=== PATIENT | male | born 1950 | race Caucasian/White ===

== ENCOUNTER 2017-05-28 23:17 | Emergency (ER) | payer BC, OTHER ==
[~2017-05-28] VITALS: Ht 172.7 cm; Wt 97.5 kg
[~2017-05-28 23:17] MED LIST: ASP81 PO; CYC10 PO; ERG400 PO; LEVO500T PO; LOR5 PO; MAX75 PO; METO-231 PO; OMEP-218 PO; OSE75 PO; OXYC-865 PO; PRO25 PO; PROM5SYR PO; RABE20TA33 PO; VARD10TA PO; VITA1CAP46 PO
--- NOTE | 2017-05-28 23:20 | ER Report ---
History and Physical Time Seen By MD: 23:19 HPI/ROS CHIEF COMPLAINT: Left upper quadrant pain HISTORY OF PRESENT ILLNESS: 66-year-old male presents ambulatory to the ER complaining of left upper quadrant pain radiating to his left upper shoulder with tingling in his left arm, sudden onset, which woke him from his sleep approximately 1 hour prior to arrival to the ER. Nausea, diaphoresis or shortness of breath. He has no previous history of cardiac disease. He does have a history of GERD for which he takes omeprazole. Patient took 4 baby aspirin at home prior to coming in. He now complains of a headache. He also notes a painful sensation to the left side of his face and head. He notes no photophobia or scotoma. Patient notes no exacerbating or alleviating factors. He notes no change in the chest discomfort with respiration. He notes he's had a previous history of kidney stones. Patient states he is due for his annual checkup on [facility] at the [facility] On further questioning, the patient reports the pain in the ceiling earlier today.. REVIEW OF SYSTEMS: Respiratory: No cough, no dyspnea. Cardiovascular: As above Gastrointestinal: As above Musculoskeletal: As above Allergies: Coded Allergies: No Known Drug Allergies (Verified , 05/28/17) Uncoded Allergies: BEE STINGS (Allergy, Mild, 10/16/10) Home Meds Active Scripts Oxycodone Hcl/Acetaminophen (PERCOCET 5-325 MG TABLET) 1 Each Tablet, 1 EACH PO Q4-6H Y for PAIN, #12 Prov:BRIDGET BEATTY DO 05/29/17 Methocarbamol (ROBAXIN-750) 750 Mg Tablet, 1 TAB PO TID Y for muscle spasm relief, #20 Prov:BRIDGET BEATTY DO 05/29/17 Reported Medications Sildenafil Citrate (VIAGRA) 100 Mg Tablet, 100 MG PO QDAY 05/28/17 Promethazine Hcl (PROMETHAZINE HCL) 25 Mg Tablet, 25 MG PO Q8H Y for NAUSEA, TAB 05/28/17 Vitamin B Complex (VITAMIN B COMPLEX) 1 Each Capsule, 1 EACH PO QDAY, CAPSULE 05/28/17 Cholecalciferol (Vitamin D3) (VITAMIN D3) 1,000 Unit Tablet, 1000 UNIT PO QDAY, TAB 05/28/17 [place]-3 Fatty Acids/Fish Oil (OMEGA 3 1,000 MG SOFTGEL) 1 Each Capsule, 1 EACH PO QDAY, CAPSULE 05/28/17 Levothyroxine Sodium (SYNTHROID) 88 Mcg Tablet, 2 TAB PO QDAY 05/28/17 Pregabalin (LYRICA) 75 Mg Capsule, 75 MG PO BID, CAPSULE 05/28/17 Omeprazole Magnesium (PRILOSEC OTC) 20 Mg Tablet.dr, 1 TAB PO QDAY, TAB 05/28/17 Meloxicam (MELOXICAM) 15 Mg Tablet, 15 MG PO QDAY 05/28/17 Fexofenadine Hcl (JIM ALLERGY) 60 Mg Tablet, 60 MG PO BID 05/28/17 Triamterene/Hydrochlorothiazid (MAXZIDE 37.5 MG-25 MG TABLET) 1 Each Tablet, 1 EACH PO QDAY 05/28/17 Metoprolol Succinate (METOPROLOL SUCCINATE) 25 Mg Tab.er.24h, 1 TAB PO QDAY, TAB 05/28/17 Aspirin (Childrens Chewable Aspirin) 81 Mg Chew, 81 MG PO QDAY, 0 Refills 10/16/10 Discontinued Reported Medications Metoprolol Succinate (Metoprolol Succinate) 100 Mg Tab.sr.24h, 1 TAB PO BID 01/03/12 Vitamin D (Vitamin D) 400 Intlu Tab, 400 INTLU PO BID, 0 Refills 10/16/10 Vitamin B Complex (Vitamin B Complex) 1 Cap Capsule, 1 CAP PO DAILY, 0 Refills 10/16/10 Omeprazole Magnesium (Prilosec Otc) 20 Mg Tablet.dr, 20 MG PO QDAY, 0 Refills 10/16/10 Triamterene/Hctz (Maxzide 50-75 Mg) 1 Ea Tab, 1 TAB PO QDAY, 0 Refills 1 TABLET PER DAY 10/16/10 Discontinued Scripts Oseltamivir Phosphate (TAMIFLU) 75 Mg Cap, 75 MG PO BID, #9 CAP Prov:YESSENIA CHERY [facility] 04/29/17 Promethazine HCl/Codeine (Prometh-Codein 6.25-10 mg/5 ml) 5 Ml Syrup, 1 TSP PO QHS Y for COUGH, #120 ML Prov:YESSENIA CHERY [facility] 04/29/17 Past Medical/Surgical History Patient has a past medical history of murmur, hypertension, asthma, reflux, alcohol use, kidney stone, patient's followed at the [facility] in [place]. Patient has a surgical history of cholecystectomy. Reviewed Nurses Notes: Yes Old Medical Records Reviewed: Yes Hx Smoking: Yes Hx Alcohol Use: Yes (OCC) Constitutional Vital Sign - Last 24 Hours 05/28/17 05/28/17 05/28/17 05/28/17 23:22 23:30 23:32 23:47 Temp 98.2 Pulse 74 73 68 Resp 24 28 9 B/P (MAP) 161/101 154/86 (108) Pulse Ox 93 92 92 05/29/17 05/29/17 05/29/17 05/29/17 00:00 00:02 00:17 00:30 Pulse 72 72 Resp 26 15 B/P (MAP) 144/80 (101) 152/83 (106) Pulse Ox 91 93 05/29/17 00:32 Pulse 82 Resp 26 Pulse Ox 92 Physical Exam General Appearance: The patient is alert, has no immediate need for airway protection and no current signs of toxicity. Vital signs stable, afebrile, pulse ox normal HEENT: Pupils equal and round no injection. TMs normal, oropharynx without redness or exudate Respiratory: Chest is non tender, lungs are clear to auscultation. Cardiac: regular rate and rhythm Gastrointestinal: Abdomen is soft and non tender, no masses, bowel sounds normal. Musculoskeletal: Neck: Neck is supple and non tender., Muscular tenderness in the Ol[place] minus musculature and left trapezius Extremities have full range of motion and are non tender. Skin: No rashes or lesions. DIFFERENTIAL DIAGNOSIS: After history and physical exam differential diagnosis was considered for chest pain including but not limited to myocardial ischemia, pericarditis pulmonary embolus, chest wall pain, pleural inflammation and pulmonary infectious causes. Additionally,back pain including but not limited to muscular pain, herniated disc, spine fracture, intra-abdominal causes and urinary tract infection. Medical Decision Making Data Points Result Diagram: 05/28/17232505/28/172325 Laboratory Hematology Test 05/28/17 23:26 Red Blood Count 5.75 M/uL (4.00-5.60) Mean Corpuscular Volume 85.6 fL (80.0-96.0) Mean Corpuscular Hemoglobin 30.1 pg (26.0-33.0) Mean Corpuscular Hemoglobin Concent 35.1 g/dL (32.0-36.0) Red Cell Distribution Width 13.8 % (11.5-14.5) Mean Platelet Volume 9.2 fL (7.2-11.1) Neutrophils (%) (Auto) 70.6 % (39.4-72.5) Lymphocytes (%) (Auto) 13.4 % (17.6-49.6) Monocytes (%) (Auto) 12.4 % (4.1-12.4) Eosinophils (%) (Auto) 2.6 % (0.4-6.7) Basophils (%) (Auto) 1.0 % (0.3-1.4) Nucleated RBC Relative Count (auto) 0.3 /100WBC Neutrophils # (Auto) 7.3 K/uL (2.0-7.4) Lymphocytes # (Auto) 1.4 K/uL (1.3-3.6) Monocytes # (Auto) 1.3 K/uL (0.3-1.0) Eosinophils # (Auto) 0.3 K/uL (0.0-0.5) Basophils # (Auto) 0.1 K/uL (0.0-0.1) Nucleated RBC Absolute Count (auto) 0.04 K/uL Urine Color Straw Urine Clarity Clear Urine pH 7.0 pH (4.8-9.5) Urine Specific [place] 1.015 Urine Protein Negative mg/dL (NEGATIVE) Urine Glucose (UA) Negative mg/dL (NEGATIVE) Urine Ketones Negative mg/dL (NEGATIVE) Urine Blood Negative (NEGATIVE) Urine Nitrite Negative (NEGATIVE) Urine Bilirubin Negative (NEGATIVE) Urine Urobilinogen 2.0 mg/dL (0.2-1.9) Urine Leukocyte Esterase Negative (NEGATIVE) Urine RBC None /HPF (0-2/HPF) Urine WBC <1 /HPF (0-5/HPF) Urine Squamous Epithelial Cells None /LPF (</=FEW) Urine Bacteria Negative /HPF (NONE-FEW) Urine Mucus None /HPF (NONE-FEW) Sodium Level 138 mmol/L (137-145) Potassium Level 3.6 mmol/L (3.5-5.0) Chloride Level 103 mmol/L (98-107) Carbon Dioxide Level 24 mmol/L (22-30) Blood Urea Nitrogen 26 mg/dl (9-21) Creatinine 1.10 mg/dl (0.66-1.25) Glomerular Filtration Rate Calc > 60.0 Random Glucose 104 mg/dl (75-110) Calcium Level 9.2 mg/dl (8.4-10.2) Total Bilirubin 0.6 mg/dl (0.2-1.3) Aspartate Amino Transf (AST/SGOT) 61 U/L (0-35) Alanine Aminotransferase (ALT/SGPT) 105 U/L (0-56) Alkaline Phosphatase 78 U/L (0-126) Troponin I < 0.012 ng/ml Total Protein 7.3 gm/dl (6.3-8.2) Albumin 4.3 g/dl (3.5-5.0) Amylase Level 36 U/L (0-110) Lipase 138 U/L (23-300) Chemistry Test 05/28/17 23:26 White Blood Count 10.3 k/uL (4.5-11.0) Red Blood Count 5.75 M/uL (4.00-5.60) Hemoglobin 17.3 g/dL (14.0-18.0) Hematocrit 49.2 % (42.0-52.0) Mean Corpuscular Volume 85.6 fL (80.0-96.0) Mean Corpuscular Hemoglobin 30.1 pg (26.0-33.0) Mean Corpuscular Hemoglobin Concent 35.1 g/dL (32.0-36.0) Red Cell Distribution Width 13.8 % (11.5-14.5) Platelet Count 190 K/uL (150-450) Mean Platelet Volume 9.2 fL (7.2-11.1) Neutrophils (%) (Auto) 70.6 % (39.4-72.5) Lymphocytes (%) (Auto) 13.4 % (17.6-49.6) Monocytes (%) (Auto) 12.4 % (4.1-12.4) Eosinophils (%) (Auto) 2.6 % (0.4-6.7) Basophils (%) (Auto) 1.0 % (0.3-1.4) Nucleated RBC Relative Count (auto) 0.3 /100WBC Neutrophils # (Auto) 7.3 K/uL (2.0-7.4) Lymphocytes # (Auto) 1.4 K/uL (1.3-3.6) Monocytes # (Auto) 1.3 K/uL (0.3-1.0) Eosinophils # (Auto) 0.3 K/uL (0.0-0.5) Basophils # (Auto) 0.1 K/uL (0.0-0.1) Nucleated RBC Absolute Count (auto) 0.04 K/uL Urine Color Straw Urine Clarity Clear Urine pH 7.0 pH (4.8-9.5) Urine Specific [place] 1.015 Urine Protein Negative mg/dL (NEGATIVE) Urine Glucose (UA) Negative mg/dL (NEGATIVE) Urine Ketones Negative mg/dL (NEGATIVE) Urine Blood Negative (NEGATIVE) Urine Nitrite Negative (NEGATIVE) Urine Bilirubin Negative (NEGATIVE) Urine Urobilinogen 2.0 mg/dL (0.2-1.9) Urine Leukocyte Esterase Negative (NEGATIVE) Urine RBC None /HPF (0-2/HPF) Urine WBC <1 /HPF (0-5/HPF) Urine Squamous Epithelial Cells None /LPF (</=FEW) Urine Bacteria Negative /HPF (NONE-FEW) Urine Mucus None /HPF (NONE-FEW) Glomerular Filtration Rate Calc > 60.0 Calcium Level 9.2 mg/dl (8.4-10.2) Total Bilirubin 0.6 mg/dl (0.2-1.3) Aspartate Amino Transf (AST/SGOT) 61 U/L (0-35) Alanine Aminotransferase (ALT/SGPT) 105 U/L (0-56) Alkaline Phosphatase 78 U/L (0-126) Troponin I < 0.012 ng/ml Total Protein 7.3 gm/dl (6.3-8.2) Albumin 4.3 g/dl (3.5-5.0) Amylase Level 36 U/L (0-110) Lipase 138 U/L (23-300) Urinalysis Test 05/28/17 23:26 Urine Color Straw Urine Clarity Clear Urine pH 7.0 pH (4.8-9.5) Urine Specific [place] 1.015 Urine Protein Negative mg/dL (NEGATIVE) Urine Glucose (UA) Negative mg/dL (NEGATIVE) Urine Ketones Negative mg/dL (NEGATIVE) Urine Blood Negative (NEGATIVE) Urine Nitrite Negative (NEGATIVE) Urine Bilirubin Negative (NEGATIVE) Urine Urobilinogen 2.0 mg/dL (0.2-1.9) Urine Leukocyte Esterase Negative (NEGATIVE) Urine RBC None /HPF (0-2/HPF) Urine WBC <1 /HPF (0-5/HPF) Urine Squamous Epithelial Cells None /LPF (</=FEW) Urine Bacteria Negative /HPF (NONE-FEW) Urine Mucus None /HPF (NONE-FEW) EKG/Imaging EKG Interpretation 12 lead EK Rhythm: normal sinus rhythm [place]: normal QRS: normal ST segments: normal, no evidence of ischemia or dysrhythmia Imaging X-ray: Single view portable chest x-ray was obtained. I viewed the images myself on the PACS system. My interpretation of the images is: No infiltrate no effusion, normal mediastinum., Comparison to previous chest x-ray 04/29/70, no significant change. The radiologist interpretation had no clinically significant variation from this interpretation. ED Course/Re-evaluation Clinical Indication for ER IV: IV Access ED Course Patient was admitted to an examination room. H&P was done. The differential diagnoses was considered. On clinical examination. Patient has left upper quadrant and left rib pain, without associated cardiac symptoms. Patient has no previous cardiac history. His pulmonary EKG is unremarkable for evidence of ischemia. Further diagnostic testing is unremarkable. Patient notes pain radiating up the entire left side of his spine. 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 I suspect that his symptoms are musculoskeletal in nature. Patient was given Toradol 30 mg IV and discharged home on Percocet and Robaxin. He is advised to follow-up with his primary care as planned in 2 days. Decision to Disposition Date: May 28, 2017 Decision to Disposition Time: 23:56 Depart Departure Latest Vital Signs Vital Signs Date Time Temp Pulse Resp B/P (MAP) Pulse Ox O2 Delivery O2 Flow Rate FiO2 05/29/17 00:32 82 26 92 05/29/17 00:30 152/83 (106) 05/28/17 23:22 98.2 Impression: Primary Impression: Neck pain Additional Impression: Strain of thoracic region Condition: Improved Disposition: HOME OR SELF-CARE Referrals: KODI HARRISON DO (PCP) New Scripts Oxycodone Hcl/Acetaminophen (PERCOCET 5-325 MG TABLET) 1 Each Tablet 1 EACH PO Q4-6H Y for PAIN, #12 Prov: BRIDGET BEATTY DO 05/29/17 Methocarbamol (ROBAXIN-750) 750 Mg Tablet 1 TAB PO TID Y for muscle spasm relief, #20 Prov: BRIDGET BEATTY DO 05/29/17 Patient Instructions: Acute Neck Pain (ED), Thoracic Back Strain (ED) Additional Instructions: Take ibuprofen 200 mg 2 tablets 3 times a day with food Apply a heating pad to your upper back and neck [facility] days as planned Problem Qualifiers Additional Impression: Strain of thoracic region Encounter type: initial encounter Qualified Codes: S29.019A - Strain of muscle and tendon of unspecified wall of thorax, initial encounter BRIDGET BEATTY DO May 28, 2017 23:20
[2017-05-28] MEDS ORDERED: NS(*) 0.9% 1000 ML BAG 1,000 ML IV ONE (23:31)
[2017-05-28] MEDS ORDERED: LEVO88TA43 PO (23:37)
[2017-05-28] MEDS ORDERED: OMEP-218 PO (23:37)
[2017-05-28] MEDS ORDERED: METO25TA23 PO (23:37)
[2017-05-28] MEDS ORDERED: PREG75CA60 PO (23:37)
[2017-05-28] MEDS ORDERED: MELO-207 PO (23:37)
[2017-05-28] MEDS ORDERED: FEXO-72 PO (23:37)
[2017-05-28] MEDS ORDERED: TRIA-19 PO (23:37)
--- NOTE | 2017-05-28 23:39 | EKG ---
FACILITY: [facility] PATIENT NAME: REED COWAN : [id number] MR: [id number] V: [id number] EXAM DATE: ORDERING PHYSICIAN: BRIDGET BEATTY TECHNOLOGIST: Teofilo Quach Reason : Blood Pressure : / mmHG Vent. Rate : 072 BPM Atrial Rate : 072 BPM P-R Int : 162 ms QRS Dur : 096 ms QT Int : 402 ms P-R-T Axes : 029 019 046 degrees QTc Int : 440 ms Normal sinus rhythm Normal ECG No previous ECGs available Confirmed by NADJA GRANADOS ([id number]) on 05/29/2017 5:37:26 AM Referred By: Confirmed By:NADJA GRANADOS
[2017-05-28] MEDS ORDERED: CHOL10005 PO (23:41)
[2017-05-28] MEDS ORDERED: OMEG-96 PO (23:41)
[2017-05-28] MEDS ORDERED: PROM-110 PO (23:41)
[2017-05-28] MEDS ORDERED: VITA1CAP46 PO (23:41)
[2017-05-28] MEDS ORDERED: SILD100T59 PO (23:41)
[2017-05-28 23:50] LABS: PLATELET COUNT, AUTOMATED 190 K/uL (150-450)
--- NOTE | 2017-05-29 00:02 | RADIOLOGY IMAGING REPORT ---
FACILITY: [facility] PATIENT NAME: Narayan Brooks : 1950 MR: [id number] V: [id number] EXAM DATE: ORDERING PHYSICIAN: BRIDGET BEATTY TECHNOLOGIST: Location: [facility] - [place] Patient: Narayan Brooks : 1950 Visit/Account:[id number] Date of Sevice: 05/28/2017 SINGLE AP RADIOGRAPH OF THE CHEST 05/28/2017 11:31 PM. INDICATION: Left-sided chest pain. COMPARISON: 04/29/2017. FINDINGS: Lungs are overall well-expanded. There is no consolidation. No pleural effusion or pneumothorax. Hear t size is normal. IMPRESSION: No acute abnormality. Report Dictated By: Liam Lares MD at 05/28/2017 11:57 PM Report E-Signed By: Liam Lares MD at 05/28/2017 11:59 PM WSN:[id number]
[2017-05-29] MEDS ORDERED: KETOROLAC 30 MG/ML VIAL IVP ONE (00:25)
[2017-05-29] MEDS ORDERED: oxyCODONE/ACETAMIN 5/325MG TH 2 TAB/BOTTLE PO ONE (00:25)
[2017-05-29] MEDS ORDERED: METHOCARBAMOL 500 MG TAB PO ONE (00:25)
[2017-05-29] MEDS ORDERED: OXYC-865 PO (00:29)
[2017-05-29] MEDS ORDERED: METH-543 PO (00:29)
[2017-05-29 00:30] VITALS: BP 152/83
== END 2017-05-29 01:09 | disposition home or self-care (01) ==
LOC: ER 23:45
DX: S29.019A Strain of muscle and tendon of unspecified wall of thorax, initial encounter (principal); M54.2 Cervicalgia
CPT/HCPCS: 71045; 81001; 82150; 83690; 84484; 85025; 93005; 96361; 96374; 99284; J1885; J7030; 82040; 82247; 82310; 82374; 82435; 82565; 82947; 84075; 84132; 84155; 84295; 84450; 84460; 84520

== ENCOUNTER 2017-08-13 16:52 | Emergency (ER) | payer OTHER, BC ==
[~2017-08-13 16:52] MED LIST changes: +CHOL10005 PO; +FEXO-72 PO; +LEVO88TA43 PO; +MELO-207 PO; +METH-543 PO; +METO25TA23 PO; +OMEG-96 PO; +PREG75CA60 PO; +PROM-110 PO; +SILD100T59 PO; +TRIA-19 PO
[2017-08-13] MEDS ORDERED: DIPHTH/TETANUS/ACEL. PERTUSSIS IM ONLY ONE (17:00)
--- NOTE | 2017-08-13 17:16 | ER Report ---
History and Physical Time Seen By MD: 17:00 Hx. of Stated Complaint: PT USED AIR NAILER AND PUT A NAIL THRU L MIDDLE FINGER NAIL. HE DID PULL IT OUT HPI/ROS CHIEF COMPLAINT: Nail trauma HISTORY OF PRESENT ILLNESS: Otherwise healthy 66-year-old male comes emergency Department today with a complaint of pain. Pain to the middle finger of the nondominant left hand very small gauge nail through a nail gun completely through the nail bed and out the tuft of the finger patient has full range of motion is no additional complaints tenderness will be updated REVIEW OF SYSTEMS: Respiratory: No cough, no dyspnea. Cardiovascular: No chest pain, no palpitations. Gastrointestinal: No vomiting, no abdominal pain. Musculoskeletal: No back pain. Remainder of the 14 system rev: Yes Allergies: Coded Allergies: No Known Drug Allergies (Verified , 08/13/17) Uncoded Allergies: BEE STINGS (Allergy, Mild, 10/16/10) Home Meds Active Scripts Methocarbamol (ROBAXIN-750) 750 Mg Tablet, 1 TAB PO TID Y for muscle spasm relief, #20 Prov:BRIDGET BEATTY DO 05/29/17 Reported Medications Vitamin B Complex (VITAMIN B COMPLEX) 1 Each Capsule, 1 EACH PO QDAY, CAPSULE 05/28/17 Cholecalciferol (Vitamin D3) (VITAMIN D3) 1,000 Unit Tablet, 1000 UNIT PO QDAY, TAB 05/28/17 [place]-3 Fatty Acids/Fish Oil (OMEGA 3 1,000 MG SOFTGEL) 1 Each Capsule, 1 EACH PO QDAY, CAPSULE 05/28/17 Levothyroxine Sodium (SYNTHROID) 88 Mcg Tablet, 2 TAB PO QDAY 05/28/17 Omeprazole Magnesium (PRILOSEC OTC) 20 Mg Tablet.dr, 1 TAB PO QDAY, TAB 05/28/17 Meloxicam (MELOXICAM) 15 Mg Tablet, 15 MG PO QDAY 05/28/17 Fexofenadine Hcl (JIM ALLERGY) 60 Mg Tablet, 60 MG PO BID 05/28/17 Triamterene/Hydrochlorothiazid (MAXZIDE 37.5 MG-25 MG TABLET) 1 Each Tablet, 1 EACH PO QDAY 05/28/17 Metoprolol Succinate (METOPROLOL SUCCINATE) 25 Mg Tab.er.24h, 1 TAB PO QDAY, TAB 05/28/17 Aspirin (Childrens Chewable Aspirin) 81 Mg Chew, 81 MG PO QDAY, 0 Refills 10/16/10 Discontinued Reported Medications Sildenafil Citrate (VIAGRA) 100 Mg Tablet, 100 MG PO QDAY 05/28/17 Promethazine Hcl (PROMETHAZINE HCL) 25 Mg Tablet, 25 MG PO Q8H Y for NAUSEA, TAB 05/28/17 Pregabalin (LYRICA) 75 Mg Capsule, 75 MG PO BID, CAPSULE 05/28/17 Discontinued Scripts Oxycodone Hcl/Acetaminophen (PERCOCET 5-325 MG TABLET) 1 Each Tablet, 1 EACH PO Q4-6H Y for PAIN, #12 Prov:BRIDGET BEATTY DO 05/29/17 Reviewed Nurses Notes: Yes Old Medical Records Reviewed: Yes Hx Smoking: Yes Hx Substance Use Disorder: No Hx Alcohol Use: Yes (OCC) Constitutional Vital Sign - Last 24 Hours 08/13/17 16:56 Temp 98.2 Pulse 71 Resp 20 B/P (MAP) 156/90 Pulse Ox 91 O2 Delivery Room Air Physical Exam General appearance: Alert no distress. Respiratory: Chest is non tender, lungs are clear to auscultation. Cardiac: Regular rate and rhythm [ ] Left hand examination examination of the nail of the finger left nondominant hand shows a small exit and entrance wound with a very small gauge nail had passed through full range of motion and neurovascularly intact no additional findings noted DIFFERENTIAL DIAGNOSIS: After history and physical exam differential diagnosis was considered for nail trauma Medical Decision Making ED Course/Re-evaluation ED Course ED clinical course 64 mL nail gun through the nailbed looks like he had involved distal tuft but no obvious significant fracture went simply threw the bat of the bone marrow [place] started on antibiotics preventing osteomyelitis concern tetanus was updated wound is clinical to see irrigated orthopedic follow-up Decision to Disposition Date: Aug 13, 2017 Decision to Disposition Time: 17:21 Depart Departure Latest Vital Signs Vital Signs Date Time Temp Pulse Resp B/P (MAP) Pulse Ox O2 Delivery O2 Flow Rate FiO2 08/13/17 16:56 98.2 71 20 156/90 91 Room Air Impression: Primary Impression: Open fracture of distal phalangeal tuft Condition: Improved Disposition: HOME OR SELF-CARE Referrals: KODI HARRISON DO (PCP) DANAE HOLMAN MD 5 Days New Scripts Cephalexin (KEFLEX) 500 Mg Capsule 500 MG PO Q6H, #20 CAP 0 Refills TAKE ONE CAPSULE BY MOUTH EVERY SIX HOURS Prov: NIRALI FAM MD 08/13/17 Patient Instructions: Finger Fracture (DC) NIRALI FAM MD Aug 13, 2017 17:16
[2017-08-13] MEDS ORDERED: CEPH-13 PO (17:23)
[2017-08-13 17:30] VITALS: BP 152/90
--- NOTE | 2017-08-13 17:32 | RADIOLOGY IMAGING REPORT ---
FACILITY: [facility] PATIENT NAME: Narayan Brooks : 1950 MR: [id number] V: [id number] EXAM DATE: ORDERING PHYSICIAN: NIRALI FAM TECHNOLOGIST: Location: [facility] - [place] Patient: Narayan Brooks : 1950 Visit/Account:[id number] Date of Sevice: 08/13/2017 Exam type: HAND COMPLETE LEFT History: Nail shot through nail bed of third digit Comparison: None. Findings: There is a lucency traversing the base of the tuft of the distal phalanx of the left third finger. T here is adjacent cortical irregularity. This could represent a small fracture given the clinical his tory. There are mild degenerative changes also noted involving the DIP joint of the left third finge r. There is a bony density projecting along the dorsal aspect of the distal left finger just proxima l to the DIP joint. The margins appear relatively smooth suggesting this is a chronic finding. No r adiopaque metallic foreign bodies are identified in the left hand IMPRESSION: 1. There is a lucency traversing the base of the tuft of the distal phalanx left third finger with a djacent cortical irregularity. This could represent a small fracture given the clinical history. Ad ditional chronic findings as described Report Dictated By: Yvonne Leos MD at 08/13/2017 5:25 PM Report E-Signed By: Yvonne Leos MD at 08/13/2017 5:28 PM WSN:[id number]
== END 2017-08-13 17:30 | disposition home or self-care (01) ==
LOC: ER 17:04
DX: S62.633B Displaced fracture of distal phalanx of left middle finger, initial encounter for open fracture (principal); W45.0XXA Nail entering through skin, initial encounter
CPT/HCPCS: 90471; 90715; 99283

== ENCOUNTER 2018-09-16 11:50 | Inpatient (IN) | payer MEDICARE, OTHER ==
[~2018-09-16 11:50] MED LIST changes: +CEPH-13 PO
--- NOTE | 2018-09-16 12:05 | ER Report ---
History and Physical Time Seen By MD: 12:05 HPI/ROS CHIEF COMPLAINT: Fevers and chills HISTORY OF PRESENT ILLNESS: This is a 67-year-old male who presents to the emergency department for not feeling well, fevers and chills. Patient states that yesterday he began to the have aches and chills, systemic achiness in his joints. Intermittent nausea no vomiting. No diarrhea. Minimal urinary output. Denies chest pain or shortness of breath. He does have a wound and a cellulitic right lower extremity. This is new from 2 days ago, he states he may have hit his limon on a trailer hitch. REVIEW OF SYSTEMS: Constitutional: As above. Eyes: No discharge. ENT: No sore throat. Cardiovascular: No chest pain, no palpitations. Respiratory: No cough, no shortness of breath. Gastrointestinal: As above. Genitourinary: As above. Musculoskeletal: No back pain. Skin: As above. Neurological: No headache. Allergies: Coded Allergies: No Known Drug Allergies (Verified , 08/13/17) Uncoded Allergies: BEE STINGS (Allergy, Mild, 10/16/10) Home Meds Reported Medications Meloxicam (MOBIC) 15 Mg Tablet, 15 MG PO QDAY 09/16/18 Levothyroxine Sodium (SYNTHROID) 200 Mcg Tablet, 200 MCG PO QDAY 09/16/18 Vitamin B Complex (VITAMIN B COMPLEX) 1 Each Capsule, 1 EACH PO QDAY, CAPSULE 05/28/17 Cholecalciferol (Vitamin D3) (VITAMIN D3) 1,000 Unit Tablet, 1000 UNIT PO QDAY, TAB 05/28/17 [place]-3 Fatty Acids/Fish Oil (OMEGA 3 1,000 MG SOFTGEL) 1 Each Capsule, 1 EACH PO QDAY, CAPSULE 05/28/17 Omeprazole Magnesium (PRILOSEC OTC) 20 Mg Tablet.dr, 1 TAB PO QDAY, TAB 05/28/17 Triamterene/Hydrochlorothiazid (MAXZIDE 37.5 MG-25 MG TABLET) 1 Each Tablet, 1 EACH PO QDAY 05/28/17 Metoprolol Succinate (METOPROLOL SUCCINATE) 25 Mg Tab.er.24h, 1 TAB PO QDAY, TAB 05/28/17 Aspirin (Childrens Chewable Aspirin) 81 Mg Chew, 81 MG PO QDAY, 0 Refills 10/16/10 Discontinued Reported Medications Levothyroxine Sodium (SYNTHROID) 88 Mcg Tablet, 2 TAB PO QDAY 05/28/17 Meloxicam (MELOXICAM) 15 Mg Tablet, 15 MG PO QDAY 05/28/17 Fexofenadine Hcl (JIM ALLERGY) 60 Mg Tablet, 60 MG PO BID 05/28/17 Discontinued Scripts Cephalexin (KEFLEX) 500 Mg Capsule, 500 MG PO Q6H, #20 CAP 0 Refills TAKE ONE CAPSULE BY MOUTH EVERY SIX HOURS Prov:NIRALI FAM MD 08/13/17 Methocarbamol (ROBAXIN-750) 750 Mg Tablet, 1 TAB PO TID PRN for muscle spasm relief, #20 Prov:BRIDGET BEATTY DO 05/29/17 Past Medical/Surgical History The patient has a past medical and surgical history of a murmur, hypertension, exercise-induced asthma, GERD, gallbladder disease, nasal surgery, cholecystectomy. Reviewed Nurses Notes: Yes Hx Smoking: Yes Hx Substance Use Disorder: No Hx Alcohol Use: Yes (OCC) Constitutional Vital Sign - Last 24 Hours 09/16/18 09/16/18 09/16/18 09/16/18 11:58 12:00 12:02 12:15 Temp 100.1 Pulse 118 122 Resp 20 B/P (MAP) 190/104 190/104 (132) 193/104 (133) 168/108 (128) Pulse Ox 92 91 O2 Delivery Room Air 09/16/18 09/16/18 09/16/18 09/16/18 12:30 13:00 13:15 13:45 Pulse 107 109 Resp 19 B/P (MAP) 182/98 (126) 191/99 (129) 195/99 (131) 192/99 (130) Pulse Ox 88 09/16/18 09/16/18 09/16/18 09/16/18 14:00 14:15 14:18 14:30 Pulse 104 105 Resp 39 56 B/P (MAP) 182/98 (126) 184/94 (124) 186/94 (124) 197/107 (137) Pulse Ox 89 88 09/16/18 09/16/18 14:45 15:00 Pulse 95 Resp 29 B/P (MAP) 169/92 (117) 163/87 (112) Pulse Ox 87 Physical Exam General Appearance: The patient is alert, has no immediate need for airway protection and no signs of toxicity. Eyes: Pupils equal and round no pallor or injection. ENT, Mouth: Mucous membranes are dry. Respiratory: There are no retractions, lungs are clear to auscultation. Cardiovascular: Regular rate and rhythm. Systolic murmur, no clicks or rubs. Gastrointestinal: Abdomen is round, soft and non tender, no masses, bowel sounds normal. Neurological: Alert and oriented 4. Moving all extremities. Following. No focal neurodeficits. Skin: Right lower extremity is hot to touch, cellulitic with surrounding erythema, serous to serosanguineous fluid leaking from the anterior surface of the right lower extremity, there is also a scab to the right lower extremity. Erythema to the right upper medial thigh as well as a few small areas of erythema to the right medial knee. Musculoskeletal: Neck is supple non tender. Extremities are nontender, nonswollen and have full range of motion. DIFFERENTIAL DIAGNOSIS: After history and physical exam differential diagnosis was considered for sepsis, cellulitis, urinary tract infection, pneumonia, bowel obstruction. Medical Decision Making Data Points Result Diagram: 09/16/18 1214 09/16/18 1214 Laboratory Hematology Test 09/16/18 12:14 09/16/18 12:46 Red Blood Count 5.66 M/uL (4.00-5.60) Mean Corpuscular Volume 86.9 fL (80.0-96.0) Mean Corpuscular Hemoglobin 30.4 pg (26.0-33.0) Mean Corpuscular Hemoglobin Concent 35.0 g/dL (32.0-36.0) Red Cell Distribution Width 14.0 % (11.5-14.5) Mean Platelet Volume 8.3 fL (7.2-11.1) Neutrophils (%) (Auto) 85.1 % (39.4-72.5) Lymphocytes (%) (Auto) 5.1 % (17.6-49.6) Monocytes (%) (Auto) 9.1 % (4.1-12.4) Eosinophils (%) (Auto) 0.2 % (0.4-6.7) Basophils (%) (Auto) 0.5 % (0.3-1.4) Nucleated RBC Relative Count (auto) 0.3 /100WBC Neutrophils # (Auto) 9.8 K/uL (2.0-7.4) Lymphocytes # (Auto) 0.6 K/uL (1.3-3.6) Monocytes # (Auto) 1.0 K/uL (0.3-1.0) Eosinophils # (Auto) 0.0 K/uL (0.0-0.5) Basophils # (Auto) 0.1 K/uL (0.0-0.1) Nucleated RBC Absolute Count (auto) 0.03 K/uL Prothrombin Time 14.0 seconds (12.0-14.4) Prothromb Time International Ratio 1.07 Activated Partial Thromboplast Time 28 seconds (23-35) Sodium Level 135 mmol/L (137-145) Potassium Level 3.3 mmol/L (3.5-5.0) Chloride Level 101 mmol/L (98-107) Carbon Dioxide Level 24 mmol/L (22-30) Blood Urea Nitrogen 26 mg/dl (9-21) Creatinine 1.00 mg/dl (0.66-1.25) Glomerular Filtration Rate Calc > 60.0 Random Glucose 134 mg/dl (75-110) Lactate 1.6 mmol/L (0.7-2.1) Calcium Level 9.1 mg/dl (8.4-10.2) Total Bilirubin 1.7 mg/dl (0.2-1.3) Aspartate Amino Transf (AST/SGOT) 50 U/L (0-35) Alanine Aminotransferase (ALT/SGPT) 83 U/L (0-56) Alkaline Phosphatase 74 U/L (0-126) C-Reactive Protein 19.0 mg/dl (<1.0) Total Protein 7.3 g/dl (6.3-8.2) Albumin 4.3 g/dl (3.5-5.0) Urine Color Yellow Urine Clarity Clear Urine pH 6.0 pH (4.8-9.5) Urine Specific [place] 1.024 Urine Protein 100 mg/dL (NEGATIVE) Urine Glucose (UA) Negative mg/dL (NEGATIVE) Urine Ketones Negative mg/dL (NEGATIVE) Urine Blood Negative (NEGATIVE) Urine Nitrite Negative (NEGATIVE) Urine Bilirubin Negative (NEGATIVE) Urine Urobilinogen 4.0 mg/dL (0.2-1.9) Urine Leukocyte Esterase Negative (NEGATIVE) Urine RBC 1 /HPF (0-2/HPF) Urine WBC 4 /HPF (0-5/HPF) Urine Squamous Epithelial Cells None /LPF (</=FEW) Urine Bacteria Negative /HPF (NONE-FEW) Urine Mucus Few /HPF (NONE-FEW) Chemistry Test 09/16/18 12:14 09/16/18 12:46 White Blood Count 11.5 k/uL (4.5-11.0) Red Blood Count 5.66 M/uL (4.00-5.60) Hemoglobin 17.2 g/dL (14.0-18.0) Hematocrit 49.2 % (42.0-52.0) Mean Corpuscular Volume 86.9 fL (80.0-96.0) Mean Corpuscular Hemoglobin 30.4 pg (26.0-33.0) Mean Corpuscular Hemoglobin Concent 35.0 g/dL (32.0-36.0) Red Cell Distribution Width 14.0 % (11.5-14.5) Platelet Count 144 K/uL (150-450) Mean Platelet Volume 8.3 fL (7.2-11.1) Neutrophils (%) (Auto) 85.1 % (39.4-72.5) Lymphocytes (%) (Auto) 5.1 % (17.6-49.6) Monocytes (%) (Auto) 9.1 % (4.1-12.4) Eosinophils (%) (Auto) 0.2 % (0.4-6.7) Basophils (%) (Auto) 0.5 % (0.3-1.4) Nucleated RBC Relative Count (auto) 0.3 /100WBC Neutrophils # (Auto) 9.8 K/uL (2.0-7.4) Lymphocytes # (Auto) 0.6 K/uL (1.3-3.6) Monocytes # (Auto) 1.0 K/uL (0.3-1.0) Eosinophils # (Auto) 0.0 K/uL (0.0-0.5) Basophils # (Auto) 0.1 K/uL (0.0-0.1) Nucleated RBC Absolute Count (auto) 0.03 K/uL Prothrombin Time 14.0 seconds (12.0-14.4) Prothromb Time International Ratio 1.07 Activated Partial Thromboplast Time 28 seconds (23-35) Glomerular Filtration Rate Calc > 60.0 Lactate 1.6 mmol/L (0.7-2.1) Calcium Level 9.1 mg/dl (8.4-10.2) Total Bilirubin 1.7 mg/dl (0.2-1.3) Aspartate Amino Transf (AST/SGOT) 50 U/L (0-35) Alanine Aminotransferase (ALT/SGPT) 83 U/L (0-56) Alkaline Phosphatase 74 U/L (0-126) C-Reactive Protein 19.0 mg/dl (<1.0) Total Protein 7.3 g/dl (6.3-8.2) Albumin 4.3 g/dl (3.5-5.0) Urine Color Yellow Urine Clarity Clear Urine pH 6.0 pH (4.8-9.5) Urine Specific [place] 1.024 Urine Protein 100 mg/dL (NEGATIVE) Urine Glucose (UA) Negative mg/dL (NEGATIVE) Urine Ketones Negative mg/dL (NEGATIVE) Urine Blood Negative (NEGATIVE) Urine Nitrite Negative (NEGATIVE) Urine Bilirubin Negative (NEGATIVE) Urine Urobilinogen 4.0 mg/dL (0.2-1.9) Urine Leukocyte Esterase Negative (NEGATIVE) Urine RBC 1 /HPF (0-2/HPF) Urine WBC 4 /HPF (0-5/HPF) Urine Squamous Epithelial Cells None /LPF (</=FEW) Urine Bacteria Negative /HPF (NONE-FEW) Urine Mucus Few /HPF (NONE-FEW) Coagulation Test 09/16/18 12:14 Prothrombin Time 14.0 seconds Prothromb Time International Ratio 1.07 Activated Partial Thromboplast Time 28 seconds Urinalysis Test 09/16/18 12:46 Urine Color Yellow Urine Clarity Clear Urine pH 6.0 pH (4.8-9.5) Urine Specific [place] 1.024 Urine Protein 100 mg/dL (NEGATIVE) Urine Glucose (UA) Negative mg/dL (NEGATIVE) Urine Ketones Negative mg/dL (NEGATIVE) Urine Blood Negative (NEGATIVE) Urine Nitrite Negative (NEGATIVE) Urine Bilirubin Negative (NEGATIVE) Urine Urobilinogen 4.0 mg/dL (0.2-1.9) Urine Leukocyte Esterase Negative (NEGATIVE) Urine RBC 1 /HPF (0-2/HPF) Urine WBC 4 /HPF (0-5/HPF) Urine Squamous Epithelial Cells None /LPF (</=FEW) Urine Bacteria Negative /HPF (NONE-FEW) Urine Mucus Few /HPF (NONE-FEW) EKG/Imaging Imaging PATIENT NAME: Narayan Brooks : 1950 MR: [id number] V: [id number] EXAM DATE: ORDERING PHYSICIAN: SHILPA FALCON TECHNOLOGIST: Location: [facility] - [place] Patient: Narayan Brooks : 1950 Visit/Account:[id number] Date of Sevice: 09/16/2018 Study: CT scan of the abdomen and pelvis with intravenous contrast Indication: Abdominal pain Comparison study: None Contrast used: 80 mL Isovue-370 Technique: Multiple axial images were obtained through the abdomen and pelvis following intravenous administration of iodinated contrast. Coronal and sagittal two-dimensional reconstructions were made from the original data set. One of the following dose optimization techniques was utilized in the performance of this exam: Automated exposure control; adjustment of the mA and/or kV according to the patient's size; or use of an iterative reconstruction technique. Specific details can be referenced in the facility's radiology CT exam operational policy. Findings: There is an enlarged lymph node and infiltrated fat present within the right inguinal region. Lung bases: Unremarkable Liver: Unremarkable Spleen: Unremarkable Gallbladder: Surgically absent Stomach: Unremarkable Small bowel:The small bowel is unremarkable in appearance. Large bowel: The large bowel is unremarkable in appearance. A normal appendix is visualized Pancreas: Unremarkable Adrenal glands: Unremarkable Kidneys: There are several nonobstructing small stones within the kidney collecting systems bilaterally. There is no evidence of hydronephrosis. There is no evidence of stone within the ureters. Retroperitoneum: Unremarkable Pelvis: Unremarkable Bony structures: Unremarkable IMPRESSION: No acute intra-abdominal or pelvic abnormality identified. There are several nonobstructing small renal stones present bilaterally. A normal appendix is visualized. There is an enlarged lymph node and infiltrated fat present within the right inguinal region. Report Dictated By: Vel Reid at 09/16/2018 1:58 PM Report E-Signed By: Vel Reid at 09/16/2018 2:10 PM WSN:[id number] ED Course/Re-evaluation Clinical Indication for ER IV: Hydration, IV Access ED Course The patient was admitted to room. A history and physical obtained. Differential diagnoses were considered. Sepsis protocol was initiated, IV was started. CBC, CMP, lactate and cultures were obtained. Patient was given a 30 mL/kg IV bolus. Once the cultures were collected, patient was started on 3.375 Zosyn and weight- based per protocol vancomycin.CBC showing white count of 11.5 with a left shift, sodium is 135, potassium 3.3, normal lactate, CRP 19, INR 1.07, urine showing anuria, concentrated with some urine bilirubin. I did talk to the patient's about an admission, I was concerned that he would not be able to go home on oral antibiotics is the extent of the cellulitis is rapidly progressing, patient was agreeable with admission. I did speak with Dr. Madison as noted below, WANDA Tijerina was able to come down and evaluate the patient, prior to admission a CT of the abdomen and pelvis was obtained. Patient was also given 1 g of oral acetaminophen. Patient's tachycardia has improved, current heart rate at 100 bpm. normotensive. 09/16/2018 12:51:22 pm I did speak with Dr. Arsenio Madison, the hospitalist console assembler, he will come down and evaluate the patient for possible admission. 09/16/2018 3:09:04 pm I did speak with Dr. madison Madison, the hospitalist on- call, he's excepted patient noted hospitalist services. Decision to Disposition Date: September 16, 2018 Decision to Disposition Time: 15:09 Depart Departure Latest Vital Signs Vital Signs Date Time Temp Pulse Resp B/P (MAP) Pulse Ox O2 Delivery O2 Flow Rate FiO2 09/16/18 15:00 95 29 163/87 (112) 87 09/16/18 11:58 100.1 Room Air Impression: Primary Impression: Cellulitis of right lower extremity Additional Impression: Sepsis Condition: Improved Disposition: Admitted from ER Referrals: KODI HARRISON DO (PCP) Problem Qualifiers Additional Impression: Sepsis Sepsis type: sepsis due to unspecified organism Qualified Codes: A41.9 - Sepsis, unspecified organism SHILPA FALCONP- September 16, 2018 12:05
[2018-09-16] MEDS ORDERED: NS 0.9% IV ONE (12:15)
[2018-09-16 12:26] LABS: PLATELET COUNT, AUTOMATED 144 K/uL (150-450)
[2018-09-16 12:35] LABS: INR 1.07
[2018-09-16] MEDS ORDERED: VANCOMYCIN(*) 1 GM VIAL 2.5 GM in NS(*) 0.9% 250 ML BAG 250 ML IVPB ONE (12:40)
[2018-09-16] MEDS ORDERED: PIPERACILLIN/TAZO*3.375GM VIAL 3.375 GM in NS(*) 0.9% 100 ML MINI-BAG 100 ML IVPB ONE (12:40)
[2018-09-16] MEDS ORDERED: IOPAMIDOL 76% 150 ML INFUS BTL 150 ML ONE (13:38)
[2018-09-16] MEDS ORDERED: ACETAMINOPHEN 500 MG TAB PO ONE (13:50)
--- NOTE | 2018-09-16 14:16 | RADIOLOGY IMAGING REPORT ---
FACILITY: [facility] - [place] PATIENT NAME: Narayan Brooks : 1950 MR: [id number] V: [id number] EXAM DATE: ORDERING PHYSICIAN: SHILPA FALCON TECHNOLOGIST: Location: [facility] Patient: Narayan Brooks : 1950 Visit/Account:[id number] Date of Sevice: 09/16/2018 Study: CT scan of the abdomen and pelvis with intravenous contrast Indication: Abdominal pain Comparison study: None Contrast used: 80 mL Isovue-370 Technique: Multiple axial images were obtained through the abdomen and pelvis following intravenous a dministration of iodinated contrast. Coronal and sagittal two-dimensional reconstructions were made f rom the original data set. One of the following dose optimization techniques was utilized in the performance of this exam: Autom ated exposure control; adjustment of the mA and/or kV according to the patient's size; or use of an i terative reconstruction technique. Specific details can be referenced in the facility's radiology C T exam operational policy. Findings: There is an enlarged lymph node and infiltrated fat present within the right inguinal regio n. Lung bases: Unremarkable Liver: Unremarkable Spleen: Unremarkable Gallbladder: Surgically absent Stomach: Unremarkable Small bowel:The small bowel is unremarkable in appearance. Large bowel: The large bowel is unremarkable in appearance. A normal appendix is visualized Pancreas: Unremarkable Adrenal glands: Unremarkable Kidneys: There are several nonobstructing small stones within the kidney collecting systems bilateral ly. There is no evidence of hydronephrosis. There is no evidence of stone within the ureters. Retroperitoneum: Unremarkable Pelvis: Unremarkable Bony structures: Unremarkable IMPRESSION: No acute intra-abdominal or pelvic abnormality identified. There are several nonobstructi ng small renal stones present bilaterally. A normal appendix is visualized. There is an enlarged lymp h node and infiltrated fat present within the right inguinal region. Report Dictated By: Vel Reid at 09/16/2018 1:58 PM Report E-Signed By: Vel Reid at 09/16/2018 2:10 PM WSN:[id number]
[2018-09-16] MEDS ORDERED: FLUSH 10 ML SYR IVP PRN (15:05)
[2018-09-16] MEDS ORDERED: LR(*) 1000 ML BAG 1,000 ML IV PRN (15:20)
[2018-09-16 15:45] VITALS: BP 172/89
--- NOTE | 2018-09-16 15:58 | History & Physical ---
History of Present Illness Chief Complaint Fevers and chills History of Present Illness This is a 67-year-old male who presented to the emergency department for general complaints of not feeling well, fevers and chills. Patient states that Friday he began to the have aches and chills, systemic achiness in his joints, headache, Intermittent nausea and vomiting. No diarrhea, he has not had bowel movement in 4 days. Minimal urinary output. Denies chest pain or shortness of breath. He does have a wound and a cellulitic right lower extremity. This is new from 2 days ago, he states he may have hit his limon on a trailer hitch. He was noted to have abdominal pain to the left lower quadrant upon palpation. He had CT of the abdomen and pelvis in the emergency department which was negative for acute processes. He was recommended for admission for cellulitis. History Problems: (1) GERD (gastroesophageal reflux disease) Status: Chronic (2) Hypertension Status: Chronic (3) Hypothyroidism Status: Chronic (4) WILLIAM (obstructive sleep apnea) Status: Chronic Home Meds Active Scripts Cephalexin (KEFLEX) 500 Mg Capsule, 500 MG PO Q6H, #20 CAP 0 Refills TAKE ONE CAPSULE BY MOUTH EVERY SIX HOURS Prov:NIRALI FAM MD 08/13/17 Methocarbamol (ROBAXIN-750) 750 Mg Tablet, 1 TAB PO TID PRN for muscle spasm relief, #20 Prov:BRIDGET BEATTY DO 05/29/17 Reported Medications Vitamin B Complex (VITAMIN B COMPLEX) 1 Each Capsule, 1 EACH PO QDAY, CAPSULE 05/28/17 Cholecalciferol (Vitamin D3) (VITAMIN D3) 1,000 Unit Tablet, 1000 UNIT PO QDAY, TAB 05/28/17 [place]-3 Fatty Acids/Fish Oil (OMEGA 3 1,000 MG SOFTGEL) 1 Each Capsule, 1 EACH PO QDAY, CAPSULE 05/28/17 Levothyroxine Sodium (SYNTHROID) 88 Mcg Tablet, 2 TAB PO QDAY 05/28/17 Omeprazole Magnesium (PRILOSEC OTC) 20 Mg Tablet.dr, 1 TAB PO QDAY, TAB 05/28/17 Meloxicam (MELOXICAM) 15 Mg Tablet, 15 MG PO QDAY 05/28/17 Fexofenadine Hcl (JIM ALLERGY) 60 Mg Tablet, 60 MG PO BID 05/28/17 Triamterene/Hydrochlorothiazid (MAXZIDE 37.5 MG-25 MG TABLET) 1 Each Tablet, 1 EACH PO QDAY 05/28/17 Metoprolol Succinate (METOPROLOL SUCCINATE) 25 Mg Tab.er.24h, 1 TAB PO QDAY, TAB 05/28/17 Aspirin (Childrens Chewable Aspirin) 81 Mg Chew, 81 MG PO QDAY, 0 Refills 10/16/10 Allergies: Coded Allergies: No Known Drug Allergies (Verified , 08/13/17) Uncoded Allergies: BEE STINGS (Allergy, Mild, 10/16/10) Hx Smoking: Yes Hx Alcohol Use: Yes (OCC) Review of Systems All Systems Reviewed/Normal: Yes, Except as Noted Constitutional: Fever, Chills Neurological: Other (temperal headache) Gastrointestinal: Nausea, Vomiting, Constipation, Abdominal Pain Musculoskeletal: Other (erythema and wound noted to right limon) Exam Vital Signs Vital Signs Date Time Temp Pulse Resp B/P (MAP) Pulse Ox O2 Delivery O2 Flow Rate FiO2 09/16/18 15:26 89 30 88 09/16/18 15:26 99.4 09/16/18 15:15 177/98 (124) 09/16/18 11:58 Room Air General Appearance: Alert, Awake, No Acute Distress, Afebrile Neuro: No Gross deficits Cardiovascular: Other (tachycardia) Respiratory: No Respiratory Distress, Clear to Auscultation GI: Other (tenderness to palpation left lower quadrant) Extremities: Warm, Perfused, Edema (nonpitting edema bilaterally) Integumentary: Other (erythema to right lower extremity, puncture [place] to right limon, draining clear fluid, right groin and right knee have redness) Psych: Alert & Oriented X3, Appropriate Mood & Affect Medical Decision Making Data Points Result Diagram: 09/16/18 1214 09/16/18 1214 EKG / Imaging Imaging PATIENT NAME: Narayan Brooks : 1950 MR: [id number] V: [id number] EXAM DATE: ORDERING PHYSICIAN: SHILPA FALCON TECHNOLOGIST: Location: [facility] - [place] Patient: Narayan Brooks : 1950 Visit/Account:[id number] Date of Sevice: 09/16/2018 Study: CT scan of the abdomen and pelvis with intravenous contrast Indication: Abdominal pain Comparison study: None Contrast used: 80 mL Isovue-370 Technique: Multiple axial images were obtained through the abdomen and pelvis following intravenous administration of iodinated contrast. Coronal and sagittal two-dimensional reconstructions were made from the original data set. One of the following dose optimization techniques was utilized in the performance of this exam: Automated exposure control; adjustment of the mA and/or kV according to the patient's size; or use of an iterative reconstructio n technique. Specific details can be referenced in the facility's radiology CT exam operational policy. Findings: There is an enlarged lymph node and infiltrated fat present within the right inguinal region. Lung bases: Unremarkable Liver: Unremarkable Spleen: Unremarkable Gallbladder: Surgically absent Stomach: Unremarkable Small bowel:The small bowel is unremarkable in appearance. Large bowel: The large bowel is unremarkable in appearance. A normal appendix is visualized Pancreas: Unremarkable Adrenal glands: Unremarkable Kidneys: There are several nonobstructing small stones within the kidney collecting systems bilaterally. There is no evidence of hydronephrosis. There is no evidence of stone within the ureters. Retroperitoneum: Unremarkable Pelvis: Unremarkable Bony structures: Unremarkable IMPRESSION: No acute intra-abdominal or pelvic abnormality identified. There are several nonobstructing small renal stones present bilaterally. A normal appendix is visualized. There is an enlarged lymph node and infiltrated fat present within the right inguinal region. Report Dictated By: Vel Reid at 09/16/2018 1:58 PM Report E-Signed By: Vel Reid at 09/16/2018 2:10 PM Assessment and Plan Problems: (1) Cellulitis of right lower extremity Status: Acute Assessment & Plan: He was admitted with cellulitis of his right lower extremity. Lines were drawn upon admission. He was given Vancomycin and Zosyn in the emergency department. Will just give Vancomycin upon admission. Consulted pharmacy for dosing adjustments. (2) Hypothyroidism Status: Chronic Assessment & Plan: Continue chronic levothyroxine. (3) GERD (gastroesophageal reflux disease) Status: Chronic Assessment & Plan: Continue chronic PPI. (4) Hypertension Status: Chronic Assessment & Plan: Continue chronic Metoprolol with hold parameters. Will hold Maxzide at this time secondary to hypokalemia. (5) WILLIAM (obstructive sleep apnea) Status: Chronic Assessment & Plan: He does wear CPAP at night. Will order for patient to have CPAP at night. Venous Thromboembolism Antithrombotics Is Pt On Any Antithrombotics?: Yes Exam Sepsis Risk: Possible Sepsis Risk YOVANI MILES [employer]WORK[employer] SANDER September 16, 2018 15:58
[2018-09-16] MEDS ORDERED: LEVO200T44 PO (16:07)
[2018-09-16] MEDS ORDERED: MELO-150 PO (16:10)
[2018-09-16] MEDS ORDERED: METOPROLOL SUCC XL 25 MG TABCR PO ONE (16:35)
--- NOTE | 2018-09-16 19:24 | Pharmacy Note ---
Vancomycin Management Note Vanco Dosing Note Vancomycin started for cellulitis of left lower extremity. A 2.5 gm load was given n the ER to be followed by a maintenance dose of 15 mg/kg = 1.5 gm q12 hour. Goal trough for cellulitis is 10-15 with a trough due on 09/17 at 1200. SC = 1 with estimated CRCL = 88, using a height of 68.5 inches given verbally by RN to [facility]. Patient's WBC = 11.5, neutrophils 9.8, temp 98.7. Pharmacy will follow and adjust dose as indicated. Thank you for the consult. JURGEN JUÁREZ September 16, 2018 19:24
[2018-09-16 19:43] VITALS: BP 188/106
[2018-09-16] MEDS ORDERED: FEXOFENADINE HCL 60 MG TAB PO SCH (21:00)
[2018-09-16] MEDS: ACETAMINOPHEN 325 MG TAB PO PRN (21:30)
[2018-09-16] MEDS: cloNIDine HCL 0.1 MG TAB PO PRN (21:31)
[2018-09-16 21:32] VITALS: BP 204/108
[2018-09-17] MEDS ORDERED: VANCOMYCIN IVPB SCH ×2 (01:00)
[2018-09-17] MEDS ORDERED: [UNRECOGNIZED DRUG - OTHER] IVPB SCH ×2 (01:00)
[2018-09-17] MEDS ORDERED: VANCOMYCIN(*) 1 GM VIAL 1 GM, VANCOMYCIN (*) 0.5 GM VIAL 0.5 GM in NS(*) 0.9% 250 ML BA... IVPB SCH (01:00)
[2018-09-17 01:09] VITALS: BP 125/69
[2018-09-17 03:38] VITALS: BP 157/86
[2018-09-17] MEDS: LEVOTHYROXINE SOD 0.1 MG TAB PO SCH (05:28)
[2018-09-17] MEDS ORDERED: LEVOTHYROXINE SOD 0.088 MG TAB PO SCH (06:00)
[2018-09-17 06:14] LABS: PLATELET COUNT, AUTOMATED 125 K/uL (150-450)
[2018-09-17 07:45] VITALS: BP 170/102
[2018-09-17] MEDS ORDERED: METOPROLOL SUCCINATE PO SCH (09:00)
[2018-09-17] MEDS: ENOXAPARIN 40 MG/0.4ML SYR SC SCH (09:43)
[2018-09-17] MEDS: IBUPROFEN 800 MG TAB PO PRN (09:43)
[2018-09-17] MEDS: METOPROLOL SUCC XL 25 MG TABCR PO SCH (09:43)
[2018-09-17] MEDS: PANTOPRAZOLE SOD 40 MG TABEC PO SCH (09:43)
--- NOTE | 2018-09-17 10:08 | Hospitalist Progress Note ---
Subjective Progress Notes Subjective He was admitted with cellulitis of the right lower extremity. He had no acute events overnight. Patient Complains of: Cardiovascular: No: Chest Pain Respiratory: No: Shortness of Breath Physical Exam Vital Signs Date Time Temp Pulse Resp B/P (MAP) Pulse Ox O2 Delivery O2 Flow Rate FiO2 09/17/18 03:38 98.4 76 18 157/86 (109) 91 Room Air 09/17/18 00:32 35.0 Intake and Output 09/17/18 01:00 Intake Total 3540 ml Balance 3540 ml Intake Oral 240 ml IV Total 3300 ml General Appearance: Alert, Awake, No Acute Distress, Afebrile Neuro: No Gross deficits Cardiovascular: Regular Rate and Rhythm Respiratory: No Respiratory Distress, Clear to Auscultation Extremities: Warm, Perfused, Edema (non pitting edema to right lower extremity) Integumentary: Other (cellulitis over limon improving overnight, but cellulitis in the right groin region expanding) Psych: Alert & Oriented X3, Appropriate Mood & Affect Result Diagram: 09/17/1852909/17/18529 Assessment and Plan Problems: (1) Cellulitis of right lower extremity Status: Acute Assessment & Plan: He was admitted with cellulitis of his right lower extremity. Lines were drawn upon admission. He was given Vancomycin and Zosyn in the emergency department. Will give Vancomycin upon admission. Consulted pharmacy for dosing adjustments. (2) Hypothyroidism Status: Chronic Assessment & Plan: Continue chronic levothyroxine. (3) GERD (gastroesophageal reflux disease) Status: Chronic Assessment & Plan: Continue chronic PPI. (4) Hypertension Status: Chronic Assessment & Plan: Continue chronic Metoprolol with hold parameters. Will hold Maxzide at this time secondary to hypokalemia. Will give clonidine as needed for high blood pressure. (5) WILLIAM (obstructive sleep apnea) Status: Chronic Assessment & Plan: He does wear CPAP at night. Will order for patient to have CPAP at night. He will bring his machine to use during admission. Exam Sepsis Risk: No Definite Risk YOVANI MILES September 17, 2018 10:08
[2018-09-17] MEDS: VANCOMYCIN(*) 1 GM VIAL 1 GM, VANCOMYCIN (*) 0.5 GM VIAL 0.25 GM in NS(*) 0.9% 250 ML B... IVPB SCH ×2 (13:16→20:17)
--- NOTE | 2018-09-17 13:44 | Pharmacy Note ---
Vancomycin Management Note Vanco Dosing Note Vanco trough = 7.21; increase dose to 1250 mg q8 hours with the next trough on 09/18 at 1200. JURGEN JUÁREZ September 17, 2018 13:44
[2018-09-17 20:15] VITALS: BP 165/82
[2018-09-18] VITALS (9 sets, daily range): BP systolic 160–178; BP diastolic 88–105
[2018-09-18] MEDS: VANCOMYCIN(*) 1 GM VIAL 1 GM, VANCOMYCIN (*) 0.5 GM VIAL 0.25 GM in NS(*) 0.9% 250 ML B... IVPB SCH ×3 (05:41→20:45)
[2018-09-18] MEDS: LEVOTHYROXINE SOD 0.1 MG TAB PO SCH (05:42)
[2018-09-18 06:00] LABS: PLATELET COUNT, AUTOMATED 148 K/uL (150-450)
[2018-09-18] MEDS: IBUPROFEN 800 MG TAB PO PRN ×2 (07:07→15:07)
[2018-09-18] MEDS: cloNIDine HCL 0.1 MG TAB PO PRN (07:09)
--- NOTE | 2018-09-18 07:15 | NUR ---
Clonidine was not administered at 0709 by previous RN.
[2018-09-18] MEDS: METOPROLOL SUCC XL 25 MG TABCR PO SCH (08:50)
[2018-09-18] MEDS: PANTOPRAZOLE SOD 40 MG TABEC PO SCH (08:50)
[2018-09-18] MEDS: ENOXAPARIN 40 MG/0.4ML SYR SC SCH (08:51)
[2018-09-18] MEDS ORDERED: POTASSIUM CHL 20 MEQ TABCR PO ONE (09:10)
[2018-09-18] MEDS: TRIAMTERENE/HCTZ 75-50MG TAB PO SCH (09:32)
--- NOTE | 2018-09-18 10:58 | Hospitalist Progress Note ---
Subjective Progress Notes Subjective He was admitted with cellulitis. He reports he is doing a little better toady. He had no acute events overnight. Patient Complains of: Cardiovascular: No: Chest Pain Respiratory: No: Shortness of Breath Physical Exam Vital Signs Date Time Temp Pulse Resp B/P (MAP) Pulse Ox O2 Delivery O2 Flow Rate FiO2 09/18/18 08:48 71 16 167/97 (120) 91 Room Air 09/18/18 07:01 98.2 09/17/18 20:10 35.0 l Intake and Output 09/18/18 01:00 Intake Total 840 ml Balance 840 ml Intake Oral 840 ml # Voids 2 General Appearance: Alert, Awake, No Acute Distress, Afebrile Neuro: No Gross deficits Cardiovascular: Regular Rate and Rhythm Respiratory: No Respiratory Distress, Clear to Auscultation Extremities: Warm, Perfused, Edema (2+pitting edema to right lower extremity, 1+pitting to left lower extremity), Other (wound seeping clear drainage from right lower extmiry) Integumentary: Other (cellulitis lines slowly improving) Psych: Alert & Oriented X3, Appropriate Mood & Affect Result Diagram: 09/18/1853509/18/1836 Assessment and Plan Problems: (1) Cellulitis of right lower extremity Status: Acute Assessment & Plan: He was admitted with cellulitis of his right lower extremity. 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 Lines were drawn upon admission. He was given Vancomycin and Zosyn in the emergency department. Will give Vancomycin upon admission. Consulted pharmacy for dosing adjustments. Clinically showing improvement. (2) Hypothyroidism Status: Chronic Assessment & Plan: Continue chronic levothyroxine. (3) GERD (gastroesophageal reflux disease) Status: Chronic Assessment & Plan: Continue chronic PPI. (4) Hypertension Status: Chronic Assessment & Plan: Continue chronic Metoprolol and Maxzide with hold parameters. Will give clonidine as needed for high blood pressure. (5) WILLIAM (obstructive sleep apnea) Status: Chronic Assessment & Plan: He does wear CPAP at night. Will order for patient to have CPAP at night. He will bring his machine to use during admission. Exam Sepsis Risk: No Definite Risk YOVANI MILES [employer] TECHNICIAN September 18, 2018 10:58
[2018-09-18] MEDS: ACETAMINOPHEN 325 MG TAB PO PRN (12:01)
--- NOTE | 2018-09-18 15:29 | Antimicrobial Stewardship ---
Antimicrobial Stewardship Empiricly appropriate: Yes Support empiric regimen: Yes Comment Vancomycin Approriate Cultures done: Yes (Blood Cx - NGTD) Determine cumulative duration: Today is day 3 Determine standard duration: 10 days Comment 67 yo M who presented with fever and chills and a wound with surrounding erythema, diagnosed with cellulitis Tmax 100.1 WBC 11.5 --> 5.9 LFTs 50/83 -->48/64 CRP 19-->15.9 Scr 1 -->0.8 Vanco Trough 09/17 = 7.21, 09/18 = 11.78 UA (-) Blood Cx (-) Vancomycin 2.5g IV x 1, then 1.5g IV q12h (low trough), Plan to continue Vancomycin, target trough of 15-20mcg/mL. Starting to clinically improve, plan to continue, plan de-escalate therapy to oral therapy in the next day or two. Consider Augmentin or first generation cephalosporin. Continue treatment for 7-14 days, target 10 days. Tamy Maciel, PharmD, BCOP TAMY MACIEL September 18, 2018 15:29
[2018-09-19] VITALS (17 sets, daily range): BP systolic 129–192; BP diastolic 64–109
[2018-09-19] MEDS: ACETAMINOPHEN 325 MG TAB PO PRN ×3 (04:04→21:15)
[2018-09-19] MEDS: IBUPROFEN 800 MG TAB PO PRN ×2 (05:22→13:27)
[2018-09-19] MEDS: LEVOTHYROXINE SOD 0.1 MG TAB PO SCH (05:22)
[2018-09-19] MEDS: VANCOMYCIN(*) 1 GM VIAL 1 GM, VANCOMYCIN (*) 0.5 GM VIAL 0.25 GM in NS(*) 0.9% 250 ML B... IVPB SCH (05:23)
[2018-09-19] MEDS: PANTOPRAZOLE SOD 40 MG TABEC PO SCH (08:54)
[2018-09-19] MEDS: TRIAMTERENE/HCTZ 75-50MG TAB PO SCH (08:55)
[2018-09-19] MEDS: METOPROLOL SUCC XL 25 MG TABCR PO SCH (08:55)
[2018-09-19] MEDS: ENOXAPARIN 40 MG/0.4ML SYR SC SCH (08:56)
[2018-09-19] MEDS ORDERED: hydrALAZINE HCL 20 MG/ML VIAL IVP PRN (09:30)
[2018-09-19] MEDS: LISINOPRIL 10 MG TAB PO SCH (10:28)
--- NOTE | 2018-09-19 12:45 | Hospitalist Progress Note ---
Subjective Progress Notes Subjective Some pain with standing which quickly remits. Increased erythema under wrap when it was removed. Patient Complains of: Gastrointestinal: No Nausea Musculoskeletal: Pain Physical Exam Vital Signs Date Time Temp Pulse Resp B/P (MAP) Pulse Ox O2 Delivery O2 Flow Rate FiO2 09/19/18 12:05 188/88 (121) 09/19/18 11:59 98.2 76 18 90 Room Air 09/18/18 08:55 35.0 Intake and Output 09/19/18 07:00 Intake Total 2436.5 ml Balance 2436.5 ml Intake Oral 1610 ml IV Total 826.5 ml # Voids 5 # Bowel Movements 1 General Appearance: Alert, Awake, No Acute Distress, Afebrile Neuro: No Gross deficits Cardiovascular: Normal Rhythm & Peripheral Pulses Respiratory: No Respiratory Distress Extremities: Warm, Pulses, Perfused Integumentary: Other (R leg erythema to near marke margins) Result Diagram: 09/18/1836 09/18/1836 Assessment and Plan Problems: (1) Cellulitis of right lower extremity Status: Acute Assessment & Plan: He was admitted with cellulitis of his right lower extremity. 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 Lines were drawn upon admission. He was given Vancomycin and Zosyn in the emergency department. Will give Vancomycin upon admission. Consulted pharmacy for dosing adjustments. Clinically more erythema which appears to be improving after removal of wrap. (2) Hypothyroidism Status: Chronic Assessment & Plan: Continue chronic levothyroxine. (3) GERD (gastroesophageal reflux disease) Status: Chronic Assessment & Plan: Continue chronic PPI. (4) Hypertension Status: Chronic Assessment & Plan: Continue chronic Metoprolol and Maxzide with hold parameters. Started 10mg lisinopril, PRN hydralazine. (5) WILLIAM (obstructive sleep apnea) Status: Chronic Assessment & Plan: He does wear CPAP at night. Will order for patient to have CPAP at night. He will bring his machine to use during admission. Exam Sepsis Risk: No Definite Risk OBRIEN CASEY GARLAND DO September 19, 2018 12:45
[2018-09-19] MEDS: VANCOMYCIN(*) 1 GM VIAL 1 GM, VANCOMYCIN (*) 0.5 GM VIAL 0.5 GM in NS(*) 0.9% 250 ML BA... IVPB SCH ×2 (13:23→21:14)
--- NOTE | 2018-09-19 13:34 | Pharmacy Note ---
Vancomycin Management Note Vanco Dosing Note Trough on 09/19/18 was 10.84 and Vancomycin was increased to 1.5 gm IV q8h with a Trough to be drawn tomorrow at 1200. PAM JUSTICE September 19, 2018 13:34
[2018-09-19] MEDS: LABETALOL HCL 100 MG/20ML VIAL IVP PRN ×2 (14:40→18:50)
[2018-09-20 03:24] VITALS: BP 162/90
[2018-09-20] MEDS: IBUPROFEN 800 MG TAB PO PRN (03:27)
[2018-09-20] MEDS: LEVOTHYROXINE SOD 0.1 MG TAB PO SCH (05:34)
[2018-09-20] MEDS: VANCOMYCIN(*) 1 GM VIAL 1 GM, VANCOMYCIN (*) 0.5 GM VIAL 0.5 GM in NS(*) 0.9% 250 ML BA... IVPB SCH ×3 (05:35→20:57)
[2018-09-20 07:01] VITALS: BP 141/80
[2018-09-20] MEDS: PANTOPRAZOLE SOD 40 MG TABEC PO SCH (09:17)
[2018-09-20] MEDS: ACETAMINOPHEN 325 MG TAB PO PRN ×2 (09:17→15:47)
[2018-09-20] MEDS: LISINOPRIL 10 MG TAB PO SCH (09:17)
[2018-09-20] MEDS: METOPROLOL SUCC XL 25 MG TABCR PO SCH (09:17)
[2018-09-20] MEDS: TRIAMTERENE/HCTZ 75-50MG TAB PO SCH (09:18)
[2018-09-20] MEDS: ENOXAPARIN 40 MG/0.4ML SYR SC SCH (09:18)
--- NOTE | 2018-09-20 12:26 | Hospitalist Progress Note ---
Subjective Progress Notes Subjective The patient says that overall he feels better but his RLE is swelling more. Physical Exam Vital Signs Date Time Temp Pulse Resp B/P (MAP) Pulse Ox O2 Delivery O2 Flow Rate FiO2 09/20/18 09:00 Room Air 09/20/18 07:01 97.8 69 15 141/80 (100) 91 09/18/18 08:55 35.0 Intake and Output 09/20/18 07:00 Intake Total 1972 ml Balance 1972 ml Intake Oral 1410 ml IV Total 562 ml # Voids 5 # Bowel Movements 2 General Appearance: Alert, Awake, No Acute Distress, Afebrile Neuro: No Gross deficits Eyes: PERRLA Cardiovascular: Regular Rate and Rhythm Respiratory: Clear to Auscultation GI: Soft and Non-Tender Extremities: Warm, Other (RLE) Psych: Appropriate Mood & Affect Result Diagram: 09/18/1853509/18/18535 Assessment and Plan Problems: (1) Cellulitis of right lower extremity Status: Acute Assessment & Plan: He was admitted with cellulitis of his right lower extremity. 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 Lines were drawn around the infection upon admission. He was given Vancomycin and Zosyn in the emergency department. We have continued Vancomycin. Consulted pharmacy for dosing adjustments. Clinically erythema has regressed some. (2) Hypothyroidism Status: Chronic Assessment & Plan: Continue chronic levothyroxine. (3) GERD (gastroesophageal reflux disease) Status: Chronic Assessment & Plan: Continue chronic PPI. (4) Hypertension Status: Chronic Assessment & Plan: Continue chronic Metoprolol and Maxzide with hold parameters. Started 10mg lisinopril, PRN hydralazine. (5) WILLIAM (obstructive sleep apnea) Status: Chronic Assessment & Plan: He does wear CPAP at night. Will order for patient to have CPAP at night. He will bring his machine to use during admission. Time Spent on Plan of Care: < 30 min Exam Sepsis Risk: No Definite Risk JURGEN HE MD September 20, 2018 12:26
--- NOTE | 2018-09-20 14:33 | RADIOLOGY IMAGING REPORT ---
FACILITY: [facility] [place] PATIENT NAME: Narayan Brooks : 1950 MR: [id number] V: [id number] EXAM DATE: ORDERING PHYSICIAN: JURGEN HE TECHNOLOGIST: Location: [facility] Patient: Narayan Brooks : 1950 Visit/Account:[id number] Date of Sevice: 09/20/2018 Right lower extremity venous Doppler duplex ultrasound scan. HISTORY: Leg infection. COMPARISON: None. A color flow Doppler duplex ultrasound examination with spectral analysis was performed on the lower extremity. The common femoral vein, superficial femoral vein, and popliteal vein are normal. These ve ssels compress and augment normally. The upper portions of the trifurcation veins are unremarkable. P ortions of the deep veins of the calf are obscured. No intraluminal filling defects are identified to suggest acute thrombus in the deep venous system. Mild edema is present in the soft tissues. Several fat-containing lymph nodes measuring up to 4 cm in length are present in the right groin. A venous reflux study was not performed at this time. Note that Doppler ultrasound is somewhat insensitive below the knee. IMPRESSION: Soft tissue edema. Mild right groin adenopathy, probably reactive. Otherwise negative for acute deep vein thrombosis. Report Dictated By: Nick Vivas MD at 09/20/2018 2:27 PM Report E-Signed By: Nick Vivas MD at 09/20/2018 2:29 PM WSN:[id number]
[2018-09-20 15:45] VITALS: BP 171/90
[2018-09-20] MEDS: LABETALOL HCL 100 MG/20ML VIAL IVP PRN ×2 (15:53→21:08)
[2018-09-20] MEDS ORDERED: NS(*) 0.9% 500 ML BAG 500 ML ONE (17:36)
[2018-09-20 20:08] VITALS: BP 174/89
[2018-09-21] VITALS (7 sets, daily range): BP systolic 144–172; BP diastolic 73–104
[2018-09-21] MEDS: VANCOMYCIN(*) 1 GM VIAL 1 GM, VANCOMYCIN (*) 0.5 GM VIAL 0.5 GM in NS(*) 0.9% 250 ML BA... IVPB SCH (05:16)
[2018-09-21] MEDS: LEVOTHYROXINE SOD 0.1 MG TAB PO SCH (05:16)
[2018-09-21 06:08] LABS: PLATELET COUNT, AUTOMATED 189 K/uL (150-450)
[2018-09-21] MEDS: LABETALOL HCL 100 MG/20ML VIAL IVP PRN (08:24)
[2018-09-21] MEDS: METOPROLOL SUCC XL 25 MG TABCR PO SCH (08:31)
[2018-09-21] MEDS: LISINOPRIL 10 MG TAB PO SCH (08:31)
[2018-09-21] MEDS: ACETAMINOPHEN 325 MG TAB PO PRN ×2 (08:31→21:18)
[2018-09-21] MEDS: ENOXAPARIN 40 MG/0.4ML SYR SC SCH (08:31)
[2018-09-21] MEDS: PANTOPRAZOLE SOD 40 MG TABEC PO SCH (08:31)
[2018-09-21] MEDS: AMOX/CLAV 875 MG TAB PO SCH ×2 (10:37→16:26)
[2018-09-21] MEDS: TRIAMTERENE/HCTZ 37.5-25MG CAPSULE PO SCH (10:37)
--- NOTE | 2018-09-21 12:16 | Hospitalist Progress Note ---
Subjective Progress Notes Subjective He was admitted with cellulitis. He had no acute events overnight. Patient Complains of: Cardiovascular: No: Chest Pain Respiratory: No: Shortness of Breath Physical Exam Vital Signs Date Time Temp Pulse Resp B/P (MAP) Pulse Ox O2 Delivery O2 Flow Rate FiO2 09/21/18 10:05 165/81 (109) 09/21/18 08:13 99.0 81 18 90 Room Air 09/18/18 08:55 35.0 Intake and Output 09/21/18 01:00 Intake Total 2085 ml Balance 2085 ml Intake Oral 1520 ml IV Total 565 ml # Voids 7 General Appearance: Alert, Awake, No Acute Distress, Afebrile Neuro: No Gross deficits Cardiovascular: Regular Rate and Rhythm Respiratory: No Respiratory Distress, Clear to Auscultation GI: Soft and Non-Tender Extremities: Warm, Perfused, Edema (3+pitting edema to right lower extremity ) Integumentary: Other (cellulitis to right groin seems improved, erythema still noted to calf and limon, but has retracted some) Psych: Alert & Oriented X3, Appropriate Mood & Affect Result Diagram: 09/21/1845 09/21/18544 Assessment and Plan Problems: (1) Cellulitis of right lower extremity Status: Acute Assessment & Plan: He was admitted with cellulitis of his right lower extremity. 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 Lines were drawn around the infection upon admission. He was given Vancomycin and Zosyn in the emergency department. We have continued Vancomycin. He will be switched to Augmentin today. Watch for a few days for improvement of erythema. Clinically erythema has regressed some. Had ultrasound completed and is negative for DVT. Will get echocardiogram to assess cardiac function in relation to leg swelling. (2) Hypothyroidism Status: Chronic Assessment & Plan: Continue chronic levothyroxine. (3) GERD (gastroesophageal reflux disease) Status: Chronic Assessment & Plan: Continue chronic PPI. (4) Hypertension Status: Chronic Assessment & Plan: Continue chronic Metoprolol and Maxzide with hold parameters. Started 10mg lisinopril, PRN hydralazine. (5) WILLIAM (obstructive sleep apnea) Status: Chronic Assessment & Plan: He does wear CPAP at night. Will order for patient to have CPAP at night. He will bring his machine to use during admission. Exam Sepsis Risk: No Definite Risk YOVANI MILES ICE CRUSHER September 21, 2018 12:16
[2018-09-22] MEDS: LEVOTHYROXINE SOD 0.1 MG TAB PO SCH (06:28)
[2018-09-22 06:30] VITALS: BP 140/87
[2018-09-22] MEDS: IBUPROFEN 800 MG TAB PO PRN ×2 (06:33→16:45)
[2018-09-22] MEDS: AMOX/CLAV 875 MG TAB PO SCH ×2 (08:03→16:45)
[2018-09-22] MEDS: LISINOPRIL 10 MG TAB PO SCH (08:04)
[2018-09-22] MEDS: PANTOPRAZOLE SOD 40 MG TABEC PO SCH (08:04)
[2018-09-22] MEDS: TRIAMTERENE/HCTZ 37.5-25MG CAPSULE PO SCH (08:04)
[2018-09-22] MEDS: ENOXAPARIN 40 MG/0.4ML SYR SC SCH (08:04)
[2018-09-22] MEDS: METOPROLOL SUCC XL 25 MG TABCR PO SCH (08:04)
--- NOTE | 2018-09-22 10:28 | Hospitalist Progress Note ---
Subjective Progress Notes Subjective He was admitted with cellulitis. He feels he is improving today. He had no acute events overnight. Patient Complains of: Cardiovascular: No: Chest Pain Respiratory: No: Shortness of Breath Physical Exam Vital Signs Date Time Temp Pulse Resp B/P (MAP) Pulse Ox O2 Delivery O2 Flow Rate FiO2 09/22/18 08:03 89 Room Air 09/22/18 06:30 98.0 65 16 140/87 (104) 09/18/18 08:55 35.0 Intake and Output 09/22/18 01:00 Intake Total 760 ml Balance 760 ml Intake Oral 480 ml IV Total 280 ml # Voids 11 # Bowel Movements 2 General Appearance: Alert, Awake, No Acute Distress, Afebrile Neuro: No Gross deficits Cardiovascular: Regular Rate and Rhythm Respiratory: No Respiratory Distress, Clear to Auscultation GI: Soft and Non-Tender Extremities: Edema (2+pitting edema to right lower extremity, improved from yesterday.) Integumentary: Other (cellulitis lines on right lower extremity appear to be re ceeding, erythema still present) Psych: Alert & Oriented X3, Appropriate Mood & Affect Result Diagram: 09/21/1845 09/21/18544 Assessment and Plan Problems: (1) Cellulitis of right lower extremity Status: Acute Assessment & Plan: He was admitted with cellulitis of his right lower extremity. 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 Lines were drawn around the infection upon admission. He was given Vancomycin and Zosyn in the emergency department. We continued Vancomycin. He was switched to Augmentin 09/21. Watch for a few days for improvement of erythema. Clinically erythema has regressed some. Had ultrasound completed and is negative for DVT. Echocardiogram essentially normal. (2) Hypothyroidism Status: Chronic Assessment & Plan: Continue chronic levothyroxine. (3) GERD (gastroesophageal reflux disease) Status: Chronic Assessment & Plan: Continue chronic PPI. (4) Hypertension Status: Chronic Assessment & Plan: Continue chronic Metoprolol and Maxzide with hold parameters. Started 10mg lisinopril, PRN hydralazine. (5) WILLIAM (obstructive sleep apnea) Status: Chronic Assessment & Plan: He does wear CPAP at night. He will bring his machine to use during admission. Exam Sepsis Risk: No Definite Risk YOVANI MILES RUNNER WORKER September 22, 2018 10:28
[2018-09-22 10:53] VITALS: BP 157/97
[2018-09-22 14:52] VITALS: BP 142/82
[2018-09-22 19:55] VITALS: BP 164/94
[2018-09-22 23:06] VITALS: BP 140/86
[2018-09-23 05:17] LABS: PLATELET COUNT, AUTOMATED 252 K/uL (150-450)
[2018-09-23] MEDS: LEVOTHYROXINE SOD 0.1 MG TAB PO SCH (05:56)
[2018-09-23 07:40] VITALS: BP 156/104
[2018-09-23] MEDS: AMOX/CLAV 875 MG TAB PO SCH (07:41)
[2018-09-23] MEDS: IBUPROFEN 800 MG TAB PO PRN (07:41)
[2018-09-23] MEDS: TRIAMTERENE/HCTZ 37.5-25MG CAPSULE PO SCH (09:09)
[2018-09-23] MEDS: METOPROLOL SUCC XL 25 MG TABCR PO SCH (09:09)
[2018-09-23] MEDS: LISINOPRIL 10 MG TAB PO SCH (09:09)
[2018-09-23] MEDS: PANTOPRAZOLE SOD 40 MG TABEC PO SCH (09:09)
[2018-09-23] MEDS: ENOXAPARIN 40 MG/0.4ML SYR SC SCH (09:09)
[2018-09-23 11:06] VITALS: BP 158/84
[2018-09-23] MEDS ORDERED: AMOX1TAB9 PO (12:31)
--- NOTE | 2018-09-23 12:37 | Hospitalist Depart ---
Discharge Summary Reason for Hosp/Final Diag: (1) Cellulitis of right lower extremity Status: Acute Hospital Course & Plan: He was admitted with cellulitis of his right lower extremity. 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 Lines were drawn around the infection upon admission. He was given Vancomycin and Zosyn in the emergency department. We continued Vancomycin. He was switched to Augmentin 09/21. Clinically erythema has regressed some. Had ultrasound completed and is negative for DVT. Echocardiogram essentially normal. Will give total 14d antibiotic due to slow response. (2) Hypothyroidism Status: Chronic Hospital Course & Plan: Continue chronic levothyroxine. (3) GERD (gastroesophageal reflux disease) Status: Chronic Hospital Course & Plan: Continue chronic PPI. (4) Hypertension Status: Chronic Hospital Course & Plan: Continue chronic Metoprolol and Maxzide with hold parameters. Started 10mg lisinopril, PRN hydralazine. (5) WILLIAM (obstructive sleep apnea) Status: Chronic Hospital Course & Plan: He does wear CPAP at night. Departure Weight (Pounds): 236 Weight (Ounces): 9.0 Result Diagram: 09/23/1844209/23/18442 Condition: Improved Discharge: Home Discharge Instructions Home Meds Active Scripts Amoxicillin/Potassium Clav (AMOX TR-K CLV 875-125 MG TAB) 1 Each Tablet, 875 MG PO BIDBS for 7 Days, #14 TAB Prov:CASEY HUTCHINS DO 09/23/18 Reported Medications Meloxicam (MOBIC) 15 Mg Tablet, 15 MG PO QDAY 09/16/18 Levothyroxine Sodium (SYNTHROID) 200 Mcg Tablet, 200 MCG PO QDAY 09/16/18 Vitamin B Complex (VITAMIN B COMPLEX) 1 Each Capsule, 1 EACH PO QDAY, CAPSULE 05/28/17 Cholecalciferol (Vitamin D3) (VITAMIN D3) 1,000 Unit Tablet, 1000 UNIT PO QDAY, TAB 05/28/17 Tryon-3 Fatty Acids/Fish Oil (OMEGA 3 1,000 MG SOFTGEL) 1 Each Capsule, 1 EACH PO QDAY, CAPSULE 05/28/17 Omeprazole Magnesium (PRILOSEC OTC) 20 Mg Tablet.dr, 1 TAB PO QDAY, TAB 05/28/17 Triamterene/Hydrochlorothiazid (MAXZIDE 37.5 MG-25 MG TABLET) 1 Each Tablet, 1 EACH PO QDAY 05/28/17 Metoprolol Succinate (METOPROLOL SUCCINATE) 25 Mg Tab.er.24h, 1 TAB PO QDAY, TAB 05/28/17 Aspirin (Childrens Chewable Aspirin) 81 Mg Chew, 81 MG PO QDAY, 0 Refills 10/16/10 Discontinued Reported Medications Levothyroxine Sodium (SYNTHROID) 88 Mcg Tablet, 2 TAB PO QDAY 05/28/17 Meloxicam (MELOXICAM) 15 Mg Tablet, 15 MG PO QDAY 05/28/17 Fexofenadine Hcl (JIM ALLERGY) 60 Mg Tablet, 60 MG PO BID 05/28/17 Discontinued Scripts Cephalexin (KEFLEX) 500 Mg Capsule, 500 MG PO Q6H, #20 CAP 0 Refills TAKE ONE CAPSULE BY MOUTH EVERY SIX HOURS Prov:NIRALI FAM MD 08/13/17 Methocarbamol (ROBAXIN-750) 750 Mg Tablet, 1 TAB PO TID PRN for muscle spasm relief, #20 Prov:BRIDGET BEATTY DO 05/29/17 Special Instructions: Complete total 14d of antibiotic therapy. Follow up with PCP as scheduled from [facility]. Venous Thromboembolism Antithrombotics Is Pt On Any Antithrombotics?: Yes CASEY HUTCHINS DO September 23, 2018 12:37
== END 2018-09-23 14:10 | disposition home or self-care (01) | DRG 603 ==
LOC: ER 12:20 → MED 15:01
PROVIDERS: ADMIT Internal Medicine; ATTEND Internal Medicine
PROC: 5A09357 Assistance with Respiratory Ventilation, Less than 24 Consecutive Hours, Continuous Positive Airway Pressure (ICD-10-PCS; principal; 2018-09-16)
DX: L03.115 Cellulitis of right lower limb (principal); I10 Essential (primary) hypertension; J45.990 Exercise induced bronchospasm; K21.9 Gastro-esophageal reflux disease without esophagitis; G47.33 Obstructive sleep apnea (adult) (pediatric); R00.0 Tachycardia, unspecified; E03.9 Hypothyroidism, unspecified; Z90.49 Acquired absence of other specified parts of digestive tract
CPT/HCPCS: 36415; 74177; 80202; 81001; 82040; 82247; 82310; 82374; 82435; 82565; 82947; 83605; 84075; 84132; 84155; 84295; 84450; 84460; 84520; 85025; 85610; 85730; 86140; 87040; 93306; 94660; 96365; 96366; 96368; 99284; J0360; J1650; J2543; J3370; J7030; J7040; J7050; J7120; Q9967